=== PATIENT | female | born 1960 | race Caucasian/White ===

== ENCOUNTER 2016-07-19 18:16 | Emergency (ER) | payer BC, OTHER ==
[~2016-07-19] VITALS: Ht 157.5 cm; Wt 61.6 kg
[~2016-07-19 18:16] MED LIST: ASPI81TA28 PO; CALCTAB30 PO; CHOL100010 PO; GLUC15002 PO; OMEG1CAP31 PO
[2016-07-19 18:30] VITALS: Ht 157.5 cm; Wt 61.6 kg
[2016-07-19] MEDS ORDERED: ASPIRIN 324 MG CHEW PO STA (18:59)
[2016-07-19 19:38] LABS: BASO % 0.4 %; BASO ABS # 0.02 K/uL (0-0.2); COMPLETE YES; EOS % 1.7 %; HEMATOCRIT 38.9 % (37-47); LYMPH % 36.7 %; LYMPH ABS # 1.75 K/uL (1.2-3.4); MEAN CELL VOLUME 85.9 fL (80-100); MEAN CORPUSCULAR HEMOGLOBIN 30.9 pg (25-34); MEAN PLATELET VOLUME 10.8 fL (7.4-10.4); MONO % 8.6 %; NEUT % 52.6 %; PLATELET COUNT 146 K/uL (130-400); RED BLOOD COUNT 4.53 M/uL (4.2-5.4); WHITE BLOOD COUNT 4.77 K/uL (4.8-10.8)
--- NOTE | 2016-07-19 19:43 | DIAGNOSTIC IMAGING REPORT ---
TWO VIEW CHEST CLINICAL HISTORY: Atypical chest pain. FINDINGS: PA and lateral chest radiographs are compared to study dated 09/06/2010. The cardiomediastinal silhouette is unremarkable. The lungs appear hyperinflated, likely due to good inspiratory result. Mild apical scarring is observed. The lungs and pleural spaces are clear. There is no pneumothorax. The bony thorax appears intact. IMPRESSION: No active disease in the chest. Electronically signed by: Salazar Olea M.D. 07/19/2016 7:41 PM Dictated Date/Time: 07/19/2016 7:41 PM
[2016-07-19 19:49] LABS: PROTHROMBIN TIME (PATIENT) 10.8 SECONDS (9.0-12.0)
[2016-07-19 20:02] LABS: ALT/SGPT 28 U/L (12-78); AST/SGOT 23 U/L (15-37); BLOOD UREA NITROGEN 17 mg/dl (7-18); BUN/CREATININE RATIO 24.6 (10-20); CALCIUM 8.9 mg/dl (8.5-10.1); CARBON DIOXIDE 28 mmol/L (21-32); CHLORIDE 107 mmol/L (98-107); GLUCOSE 86 mg/dl (70-99); POTASSIUM 3.9 mmol/L (3.5-5.1); SODIUM 143 mmol/L (136-145)
[2016-07-19 20:07] LABS: ALKALINE PHOSPHATASE 91 U/L (45-117); CKMB/CK RATIO 1.2 (0-3.0)
--- NOTE | 2016-07-19 20:31 | EMERGENCY ROOM VISIT NOTE ---
History First contact with patient: 18:40 Chief Complaint: CHEST PAIN Stated Complaint: CHEST PAIN Nursing Triage Summary: see triage note History of Present Illness The patient is a 56 year old female who presents to the Emergency Room with complaints of chest pain. The patient states that she has had intermittent pains which she describes as sharp in her chest for the past 60 days. She states they started around [place] time. She states that they very in location. Sometimes they are on the left side of her chest sometimes on the right side sometimes midline. She denies any associated shortness of breath, diaphoresis, arm or jaw pain. The patient states that she has had the same symptoms in the past and was worked up for her heart. She had a stress test at that time which was several years ago and was normal. The patient states today the chest pains today felt like "zaps" in the middle of my chest. The patient does admit to prior left calf pain several days ago. She does not have any calf pain now. The patient denies any recent travel or surgeries. The patient does not smoke. The patient is not on any hormones. The patient denies any history of blood clots. Review of Systems 10 system review was performed and was negative unless stated otherwise history of present illness. Past Medical/Surgical History No significant past medical history Social History Smoking Status: Never Smoker Alcohol Use: occasionally Marital Status: Housing Status: lives with family Occupation Status: employed Current/Historical Medications No Active Prescriptions or Reported Meds Allergies Coded Allergies: No Known Allergies (Unverified , 05/07/13) Physical Exam Vital Signs Date Time Temp Pulse Resp B/P Pulse Ox O2 Delivery O2 Flow Rate FiO2 07/19/16 19:23 71 07/19/16 18:48 98 Room Air 07/19/16 18:30 37.2 79 18 159/86 98 Room Air Physical Exam GENERAL: 56-year-old white female appears in no acute distress. MENTAL Status: Alert and oriented 3 EYES: PERRLA. EOMs intact. NECK: Supple, no lymphadenopathy noted. No carotid bruits noted. LUNGS: Clear auscultation without wheezes rales or rhonchi. CARDIAC: Regular rate and rhythm without murmur. Pulses is full and equal throughout. ABDOMEN: Positive bowel sounds all 4 quadrants. Soft, nontender to palpation without organomegaly or masses. LOWER EXTREMITIES: Calves nontender. No cyanosis or edema noted Medical Decision & Procedures ER Provider Diagnostic Interpretation: TWO VIEW CHEST CLINICAL HISTORY: Atypical chest pain. FINDINGS: PA and lateral chest radiographs are compared to study dated 09/06/2010. The cardiomediastinal silhouette is unremarkable. The lungs appear hyperinflated, likely due to good inspiratory result. Mild apical scarring is observed. The lungs and pleural spaces are clear. There is no pneumothorax. The bony thorax appears intact. IMPRESSION: No active disease in the chest. Electronically signed by: Salazar Olea M.D. 07/19/2016 7:41 PM Laboratory Results 07/19/16 19:05 Red Blood Count 4.53, Mean Corpuscular Volume 85.9, Mean Corpuscular Hemoglobin 30.9, Mean Corpuscular Hemoglobin Concent 36.0, Mean Platelet Volume 10.8, Neutrophils (%) (Auto) 52.6, Lymphocytes (%) (Auto) 36.7, Monocytes (%) (Auto) 8.6, Eosinophils (%) (Auto) 1.7, Basophils (%) (Auto) 0.4, Neutrophils # (Auto) 2.51, Lymphocytes # (Auto) 1.75, Monocytes # (Auto) 0.41, Eosinophils # (Auto) 0.08, Basophils # (Auto) 0.02 07/19/16 19:05 Test 07/19/16 19:05 White Blood Count 4.77 K/uL (4.8-10.8) Red Blood Count 4.53 M/uL (4.2-5.4) Hemoglobin 14.0 g/dL (12.0-16.0) Hematocrit 38.9 % (37-47) Mean Corpuscular Volume 85.9 fL (80-100) Mean Corpuscular Hemoglobin 30.9 pg (25-34) Mean Corpuscular Hemoglobin Concent 36.0 g/dl (32-36) Platelet Count 146 K/uL (130-400) Mean Platelet Volume 10.8 fL (7.4-10.4) Neutrophils (%) (Auto) 52.6 % Lymphocytes (%) (Auto) 36.7 % Monocytes (%) (Auto) 8.6 % Eosinophils (%) (Auto) 1.7 % Basophils (%) (Auto) 0.4 % Neutrophils # (Auto) 2.51 K/uL (1.4-6.5) Lymphocytes # (Auto) 1.75 K/uL (1.2-3.4) Monocytes # (Auto) 0.41 K/uL (0.11-0.59) Eosinophils # (Auto) 0.08 K/uL (0-0.5) Basophils # (Auto) 0.02 K/uL (0-0.2) RDW Standard Deviation 40.1 fL (36.4-46.3) RDW Coefficient of Variation 12.7 % (11.5-14.5) Immature Granulocyte % (Auto) 0.0 % Immature Granulocyte # (Auto) 0.00 K/uL (0.00-0.02) Prothrombin Time 10.8 SECONDS (9.0-12.0) Prothromb Time International Ratio 1.0 (0.9-1.1) Activated Partial Thromboplast Time 26.4 SECONDS (21.0-31.0) Partial Thromboplastin Ratio 1.0 Anion Gap 8.0 mmol/L (3-11) Est Creatinine Clear Calc Drug Dose 78.4 ml/min Estimated GFR () 113.0 Estimated GFR (Non- 97.5 BUN/Creatinine Ratio 24.6 (10-20) Calcium Level 8.9 mg/dl (8.5-10.1) Total Bilirubin 0.4 mg/dl (0.2-1) Direct Bilirubin < 0.1 mg/dl (0-0.2) Aspartate Amino Transf (AST/SGOT) 23 U/L (15-37) Alanine Aminotransferase (ALT/SGPT) 28 U/L (12-78) Alkaline Phosphatase 91 U/L (45-117) Total Creatine Kinase 122 U/L (26-192) Creatine Kinase MB 1.5 ng/ml (0.5-3.6) Creatine Kinase MB Ratio 1.2 (0-3.0) Total Protein 6.9 gm/dl (6.4-8.2) Albumin 4.3 gm/dl (3.4-5.0) Lipase 209 U/L (73-393) Medications Administered Medications (Trade) Dose Ordered Sig/Lexi Route Start Time Stop Time Status Last Admin Dose Admin Aspirin (Aspirin Chew) 324 mg NOW STAT PO 07/19/16 18:59 07/19/16 19:02 DC 07/19/16 19:16 324 MG ECG Indication: chest pain Rhythm: normal sinus Findings: no acute ischemic change Change: no significant change ED Course The patient was evaluated. IV access was obtained. The patient was placed on a monitor. EKG was ordered and interpreted as above without any acute findings. The patient was given 324 mg of chewable aspirin. CBC and differential, CK-MB, coags, LFTs and lipase, renal profile was ordered. Point of care troponin, BNP and d-dimer were ordered. Labs are reviewed and were all unremarkable. Troponin and d-dimer were within normal limits. Chest x-ray was ordered and interpreted by the radiologist myself as above without any acute findings. The patient was reevaluated and was feeling better. She was informed of all findings. The patient's case was discussed with Dr. Tena who agreed with treatment plan. The patient was discharged home in stable condition. Medical Decision Differential diagnosis include acute PE, acute SC, GERD, shingles, pneumonia, bronchitis, muscular strain Impression Primary Impression: CHEST PAIN, UNSPECIFIED Departure Information Dispostion Home / Self-Care Condition GOOD Prescriptions No Active Prescriptions or Reported Meds Referrals Astrid Greenwood DO (PCP) Forms HOME CARE DOCUMENTATION FORM, IMPORTANT VISIT INFORMATION Patient Instructions Chest Pain - [facility], [facility] Additional Instructions If you experience any severe chest pain, shortness of breath return to the ER immediately. Recommend [id number] Prilosec daily for 2 weeks. Observe for any rashes. Follow-up with your family doctor later this week for reevaluation.
[2016-07-19 21:10] VITALS: BP 134/88; PULSE 73; TEMP 37.2; O2SAT 98
[2016-07-20 12:23] LABS: POINT OF CARE PRO-BNP < 15 pg/ml (0-900)
== END 2016-07-19 21:10 | disposition home or self-care (01) ==
LOC: C.EDB 18:17 → C.EDC 21:10
DX: R07.9 Chest pain, unspecified (principal)